=== PATIENT | male | born 1990 | race Caucasian/White ===

== ENCOUNTER 2018-07-25 19:19 | Emergency (ER) | payer OTHER ==
[~2018-07-25] VITALS: Ht 185.4 cm; Wt 81.8 kg
[2018-07-25 20:15] LABS: BASO % 0.3 % (0.0-1.0); EOS # 0.1 10^3/uL (0.0-0.50); EOS % 1.6 % (0.0-3.0); HEMATOCRIT 43.9 % (42.0-52.0); HEMOGLOBIN 15.7 g/dl (13.5-17.5); LYMPH # 2.4 10^3/uL (1.5-6.5); LYMPH % 35.6 % (24.0-44.0); MEAN CORPUSCULAR HEMOGLOBIN 31.8 pg (27.0-33.0); MEAN CORPUSCULAR HGB CONC 35.8 g/dl (32.0-36.5); MEAN CORPUSCULAR VOLUME 88.9 fl (80.0-96.0); MONO # 0.7 10^3/uL (0.0-0.8); MONO % 9.6 % (0.0-5.0); NEUTROPHILS # 3.6 10^3/uL (1.8-7.7); NEUTROPHILS % 52.6 % (36.0-66.0); PLATELET COUNT, AUTOMATED 240 10^3/uL (150-450); RED BLOOD COUNT 4.94 10^6/uL (4.30-6.10); WHITE BLOOD COUNT 6.8 10^3/uL (4.0-10.0)
[2018-07-25 21:05] LABS: BLOOD UREA NITROGEN 14 MG/DL (7-18); CALCIUM LEVEL 8.7 MG/DL (8.5-10.1); CARBON DIOXIDE LEVEL 31 MEQ/L (21-32); CHLORIDE LEVEL 105 MEQ/L (98-107); CPK CREATINE PHOSPHOKINASE 109 U/L (39-308); CREATININE FOR GFR 1.01 MG/DL (0.70-1.30); FREE T4 0.99 NG/DL (0.76-1.46); GLOMERULAR FILTRATION RATE > 60.0 (>60); GLUCOSE, FASTING 94 MG/DL (70-100); MB/CK RELATIVE INDEX 1.19 (< OR =4); POTASSIUM SERUM 4.1 MEQ/L (3.5-5.1); SODIUM LEVEL 140 MEQ/L (136-145); THYROID STIMULATING HORMONE 0.812 uIU/ML (0.358-3.740); TROPONIN I < 0.02 NG/ML (< 0.10)
[2018-07-25] MEDS ORDERED: ISOVUE-370 76% 125ML VIAL (Q9967 PER ML) As Ordered ONE (21:07)
--- NOTE | 2018-07-25 21:10 | REP ---
Chest one-view HISTORY: Chest pain Comparison: None The lungs are clear. The heart is normal in size. The pulmonary vasculature is normal in appearance. Impression: No acute disease. Electronically Signed by Huy Davila MD 07/25/2018 09:00 P
--- NOTE | 2018-07-25 21:45 | REPVR ---
EXAM: CT Angiography Chest With Contrast EXAM DATE/TIME: 07/25/2018 9:10 PM CLINICAL HISTORY: 28 years old, male; Pain and condition or disease; Cardiovascular condition or disease; Atrial fibrillation; Chest pain; Type not specified; Additional info: Chest pain, new onset a fib TECHNIQUE: Axial computed tomographic angiography images of the chest with intravenous contrast using CT angiography protocol. All CT scans at this facility use at least one of these dose optimization techniques: automated exposure control; mA and/or kV adjustment per patient size (includes targeted exams where dose is matched to clinical indication); or iterative reconstruction. Coronal and sagittal reformatted images were created and reviewed. MIP reconstructed images were created and reviewed. CONTRAST: Contrast Material: 75 ml of ISOVUE 370; Contrast Route: IV COMPARISON: CR PORTABLE CHEST X-RAY 07/25/2018 8:17 PM FINDINGS: Pulmonary arteries: Normal. No pulmonary emboli. Aorta: Normal. No aortic aneurysm. No aortic dissection. Lungs: 3 mm nodule right middle lobe (series 42 image 54). Thin reticular pleural based opacities in the right middle lobe suggests scarring. Pleural space: 4 mm pleural-based opacity superior segment left lower lobe (series 4 a 2 image 50). Heart: Normal. No cardiomegaly. No pericardial effusion. Lymph nodes: Unremarkable. No enlarged lymph nodes. Bones/joints: Unremarkable. No acute fracture. Soft tissues: Unremarkable. IMPRESSION: 1. No acute pulmonary embolism. 2. Bilateral pulmonary nodules.If patient does not have known cancer, follow up should be based on clinical information because of the low risk of cancer in this age group. (Mayte et al., Fleischner Society, 2017) Electronically signed by: Destiny Blood On 07/25/2018 21:45:20 PM
[2018-07-25 22:06] LABS: AMPHETAMINES LEVEL URINE NEGATIVE (NEGATIVE); BARBITURATES URINE NEGATIVE (NEGATIVE); BENZODIAZEPINES URINE NEGATIVE (NEGATIVE); CANNABINOIDS URINE NEGATIVE (NEGATIVE); COCAINE METABOLITE URINE NEGATIVE (NEGATIVE); METHADONE URINE NEGATIVE (NEGATIVE); OPIATES URINE NEGATIVE (NEGATIVE); PHENCYCLIDINE URINE NEGATIVE (NEGATIVE)
[2018-07-25] MEDS ORDERED: ASPI325T25 PO (22:27)
[2018-07-25] MEDS ORDERED: ASPIRIN 325 MG TAB PO ONE (22:30)
[2018-07-25 22:32] VITALS: BP 112/62
[2018-07-25 22:42] LABS: CPK CREATINE PHOSPHOKINASE 101 U/L (39-308); MB/CK RELATIVE INDEX 1.19 (< OR =4); TROPONIN I < 0.02 NG/ML (< 0.10)
--- NOTE | 2018-07-27 06:07 | ECGEPIP ---
Stationary ECG Study [facility] - ED Test Date: 2018-07-25 Pat Name: SARAH GILL Department: Room: - Gender: M Process Control Board Operator: WALTER : 1990 Requested By: MEGAN Edward Order Number: [id number] Reading MD: Matias Eason Measurements Intervals [place] Rate: 53 P: MO: 0 QRS: 75 QRSD: 97 T: 48 QT: 381 QTc: 360 Interpretive Statements ATRIAL FIBRILLATION WITH SLOW VENTRICULAR RESPONSE NO PRIORS FOR COMPARISON Electronically Signed On 07-27-2018 6:06:42 EDT by Matias Eason
--- NOTE | 2018-07-27 13:59 | ED PDOC ---
Post-Departure Follow-Up did[facility] hunt faxed formal report of cta chest for fu Haydee Robbins MD Jul 27, 2018 13:59
== END 2018-07-25 22:44 | disposition home or self-care (01) ==
LOC: M ED 19:19
DX: I48.91 Unspecified atrial fibrillation (principal); R91.8 Other nonspecific abnormal finding of lung field; R06.02 Shortness of breath; Z77.098 Contact with and (suspected) exposure to other hazardous, chiefly nonmedicinal, chemicals; F17.220 Nicotine dependence, chewing tobacco, uncomplicated; Z82.49 Family history of ischemic heart disease and other diseases of the circulatory system
CPT/HCPCS: 36415; 71045; 71275; 80048; 80307; 82550; 82553; 84439; 84443; 84484; 85025; 93005; 93041; 94760; 99285; Q9967